=== PATIENT | female | born 1945 | race Caucasian/White ===

== ENCOUNTER 2017-03-26 10:15 | Inpatient (IN) ==
[2017-03-26] MEDS ORDERED: MAGNESIUM SULF RIDER 2 GM in PREMIX 1 EACH IV PRN (13:36)
[2017-03-26] MEDS ORDERED: DOCUSATE SODIUM 100 MG CAPSULE PO PRN (13:36)
[2017-03-26] MEDS ORDERED: MAGNESIUM SULF RIDER 4 GM in PREMIX 1 EACH IV PRN (13:36)
[2017-03-26] MEDS ORDERED: ZALEPLON 5 MG CAPSULE PO PRN (13:36)
--- NOTE | 2017-03-26 13:37 | Emergency Department Note ---
Arrival - Arrival Chief Complaint: Wound/Laceration Stated Complaint: incision busted open ED Nursing Triage Note: states had a heart monitor removed on 03/04/17 and the incision is open and will not heal. pt was told by dr fry to come to er and he would come see her Mode of Arrival: Ambulatory Time Seen by Provider: 03/26/17 13:35 - History of Present Illness HPI Narrative: The patient is sent back to nonemergent to see Dr. Fry. I will not be seeing this patient. Allergies/Adverse Reactions: Allergies Allergy/AdvReac Type Severity Reaction Status Date / Time Seafood Allergy Swelling Verified 03/11/17 17:30 of Lip/Tongue/Throat Home Medications: Home Medications Medication Instructions Recorded Confirmed Type Aspirin [Ecotrin] 81 mg PO DAILY 01/16/17 03/26/17 History Duloxetine HCl [Cymbalta] 60 mg PO DAILY 01/16/17 03/26/17 History LORazepam [Lorazepam] 0.5 mg PO DAILY 01/16/17 03/26/17 History Levothyroxine Tab [Synthroid Tab] 88 mcg PO DAILY 01/16/17 03/26/17 History Lisinopril/Hydrochlorothiazide 1 each PO DAILY #30 tablet 01/16/17 03/26/17 Rx [Lisinopril-Hctz 20-12.5 mg Tab] Pantoprazole Tab [Protonix Tab] 40 mg PO DAILY 01/16/17 03/26/17 History Medical,Surgical,& Family Hx - Medical History Cardio: History of: Hypertension Neurology: No history of: Seizures Gastrointestinal: History of: GERD Musculoskeletal: History of: Back/Neck Problems (back surgery) - Surgical History Cardiac Surgeries: Sugical HX of: Cardiac Catheterization () Orthopedic Surgeries: Surgical HX of;: Orthopedic Surgery (both knees) - Family History Family History: Reports;: Family Hypertension (parents), Family Stroke (father) - Social History Smoking Status: Never smoker Frequency of Alcohol Use: None Type of Drug Use: None Exam Vital Signs: Vital Signs Temperature 97.6 F 03/26/17 10:21 Pulse Rate 75 03/26/17 10:21 Respiratory Rate 18 03/26/17 10:21 Blood Pressure 153/79 03/26/17 10:21 O2 Sat by Pulse Oximetry 98 03/26/17 10:21 Course - Consultations Consultation #1: Dr. Fry at bedside Time: 13:35 Results - Labs CBC & BMP: 03/26/17 13:50
--- NOTE | 2017-03-26 13:49 | Cardiology History & Physical ---
Assessment and Plan (1) Skin infection Status: Acute Assessment and plan: 71-year-old female, status post a dual-chamber pacemaker implant for second- degree AV block, ILR explant. She developed ILR site infection 2 weeks after the procedure. She is not septic. The pacemaker implant site does not appear to be infected. -Admit to med/surg bed -ILR explant site infection. We will initiate IV antibiotic treatment, to protect her recently implanted pacemaker. -Stat CBC, BMP, wound and blood culture. -Start vancomycin 1 g IV twice daily, Zosyn 3.375 mg every 6 hours IV. We will deescalate treatment based on response and sensitivities -Wound care consult -Cont current regimen for HTN -If she shows any signs of systemic infection, we will need to proceed with endocarditis workup (2) 2Nd degree atrioventricular block Status: Acute (3) Chronotropic incompetence Status: Acute (4) HTN (hypertension) Status: Acute History of Present Illness Chief complaint: ILR explant site infection History of present illness: Ms. Tamayo is a 71 year old female with history of exertional second-degree AV block. She had a loop recorder in place. Due to progressive symptoms, she underwent dual-chamber pacemaker implantation and a loop recorder explantation 2 weeks ago. Her exertional bradycardia symptoms resolved and she was feeling much better. A week later, she presented for pacemaker and wound check, the pacemaker implant site and the ILR explant site was healing well. Dressings were removed. A day later, she noticed that the ILR explant site incision opened up. She noticed some drainage. She tried to clean it up, including a Q-tip but the drainage worsened and she developed some erythema surrounding the incision site. She came in for evaluation. She has pus draining from the ILR explant site and the incision is gaping, with some surrounding erythema. The pacemaker implant site is completely benign, there is no erythema, the wound healed well, there is no fluctuation, tenderness or pain. She denies any pain, fever chills or weakness. She has a small scratch on her left leg, without surrounding erythema. She denies recent injuries. Home Medications Medication Instructions Recorded Confirmed Type Aspirin [Ecotrin] 81 mg PO DAILY 01/16/17 03/26/17 History Duloxetine HCl [Cymbalta] 60 mg PO DAILY 01/16/17 03/26/17 History LORazepam [Lorazepam] 0.5 mg PO DAILY 01/16/17 03/26/17 History Levothyroxine Tab [Synthroid Tab] 88 mcg PO DAILY 01/16/17 03/26/17 History Lisinopril/Hydrochlorothiazide 1 each PO DAILY #30 tablet 01/16/17 03/26/17 Rx [Lisinopril-Hctz 20-12.5 mg Tab] Pantoprazole Tab [Protonix Tab] 40 mg PO DAILY 01/16/17 03/26/17 History Allergies Allergy/AdvReac Type Severity Reaction Status Date / Time Seafood Allergy Swelling Verified 03/11/17 17:30 of Lip/Tongue/Throat 12 point system: reviewed and no additional remarkable complaints except as stated Medical,Surgical,& Family Hx - Medical History Cardio: History of: Hypertension Neurology: No history of: Seizures Gastrointestinal: History of: GERD Musculoskeletal: History of: Back/Neck Problems (back surgery) - Surgical History Cardiac Surgeries: Sugical HX of: Cardiac Catheterization () Orthopedic Surgeries: Surgical HX of;: Orthopedic Surgery (both knees) - Family History Family History: Reports;: Family Hypertension (parents), Family Stroke (father) - Social History Smoking Status: Never smoker Frequency of Alcohol Use: None Type of Drug Use: None Cardiology Physical Exam - Constitutional Vitals: Vital Signs Temp Pulse Resp BP Pulse Ox 97.6 F 75 18 153/79 98 03/26/17 10:21 03/26/17 10:21 03/26/17 10:21 03/26/17 10:21 03/26/17 10:21 Intake and Output 03/25/17 03/26/17 03/26/17 23:59 07:59 15:59 Other: Weight 90.718 kg Patient Weight 03/26/17 23:59 Weight 90.718 kg General appearance: normal weight, no acute distress - Head Head exam: Present: normal inspection, normocephalic - Eye Eye exam: Absent: conjunctival injection Pupils: Absent: dilated - ENT ENT exam: Present: normal external ear exam - Neck Neck exam: Present: normal inspection - Respiratory Respiratory exam: Present: clear to auscultation bilaterally - Cardiovascular Cardiovascular exam: Present: regular rate and rhythm. Absent: systolic murmur - GI/Abdominal GI/Abdominal exam: Present: normal bowel sounds. Absent: distended - Extremities Exam Extremities exam: Present: normal inspection, normal capillary refill. Absent: edema - Back Exam Back exam: Present: normal inspection - Neurological Exam Neurological exam: Present: alert, oriented X3 - Psychiatric Psychiatric exam: Present: normal affect, normal mood - Skin Skin exam: Present: normal color, warm, other (ILR site abscess, as described in HPI) Result/EKG - Labs Lab Results: I have reviewed the past 24 hour labs - EKG EKG results: interpreted by me Quality Measures - VTE Contraindication to Pharmacological VTE Prophylaxis: Clinical assessment deems Pt at low risk, no prophalaxis needed
[2017-03-26 14:05] LABS: Basophils # 0.1 10*3/uL (0.0-0.2); Basophils % 0.6 % (0.0-0.8); Eosinophils # 0.6 10*3/uL (0.0-0.87); Eosinophils % 7.5 % (0.00-10.9); Hematocrit 32.2 VOL% (35.7-47.0); Immature Granulocytes % 0.3 %; Immature Granulocytes Absolute 0.02 #; Lymphocytes # 3.4 10*3/uL (1.4-4.0); Lymphocytes % 43.1 % (21.3-54.2); Mean Corpuscular HGB Conc 34.2 GM/DL (32-36); Mean Corpuscular Hemoglobin 29 PG (27-34); Mean Corpuscular Volume 85.6 FL (87-102); Mean Platelet Volume 8.5 FL (9.6-12.0); Monocytes # 0.4 10*3/uL (0.11-0.8); Neutrophils # 3.4 10*3/uL (1.4-7.4); Neutrophils % 43.5 % (38.7-73.9); Platelet Count 250 T/CUMM (130-400); Red Blood Count 3.76 MC/CUMM (3.8-5.5); Red Cell Distribution Width 12.9 % (9.3-17.3); White Blood Count 7.8 T/CUMM (4-12)
[2017-03-26 14:38] LABS: Calcium 8.9 MG/DL (8.5-10.1); Osmolality,Calculated 282.3 MOS/KG (273-304); Potassium 3.8 MMOL/L (3.5-5.1)
[2017-03-26] MEDS: PIPERACILLIN/TAZOBACTAM 3,375 MG in SODIUM CHLORIDE 0.9% 100 ML IV SCH (15:43)
[2017-03-26 16:55] LABS: Apearance,Urine CLEAR (Clear); Bilirubin,Urine Negative (Negative); Blood, Urine Small mg/dL (Negative); Glucose,Urine (UA) Negative (Negative); Ketones,Urine Negative (Negative); Nitrite,Urine Negative (Negative); Protein,Urine Negative; RBC,Urine 1 /HPF (0-4); Urine Color Straw (Yellow); Urine Specific Gravity 1.005 (1.001-1.035); Urine Urobilinogen < 2.0 EU/DL (0.2-1.0); WBC,Urine 1 /HPF (0-6)
[2017-03-26] MEDS ORDERED: VANCOMYCIN INJ 1,250 MG in SODIUM CHLORIDE 0.9% 250 ML IV SCH (20:00)
[2017-03-26] MEDS: LORazepam 0.5 MG TABLET PO SCH (20:20)
[2017-03-26] MEDS: DULoxetine 30 MG CAPSULE PO SCH (20:20)
[2017-03-26] MEDS ORDERED: DULoxetine 30 MG CAPSULE PO SCH (21:00)
[2017-03-26] MEDS ORDERED: LORazepam 0.5 MG TABLET PO SCH (21:00)
[2017-03-26] MEDS ORDERED: diphenhydrAMINE CAP 25 MG CAPSULE PO PRN (21:30)
[2017-03-26] MEDS ORDERED: diphenhydrAMINE CAP 50 MG CAPSULE PO PRN (21:31)
[2017-03-27] MEDS: PIPERACILLIN/TAZOBACTAM 3,375 MG in SODIUM CHLORIDE 0.9% 100 ML IV SCH ×3 (00:12→15:22)
[2017-03-27 06:24] LABS: Basophils # 0.1 10*3/uL (0.0-0.2); Basophils % 0.8 % (0.0-0.8); Eosinophils # 0.7 10*3/uL (0.0-0.87); Eosinophils % 8.9 % (0.00-10.9); Hematocrit 31.3 VOL% (35.7-47.0); Hemoglobin 10.5 GM/DL (12.0-16.0); Immature Granulocytes % 0.1 %; Immature Granulocytes Absolute 0.01 #; Lymphocytes # 3.3 10*3/uL (1.4-4.0); Lymphocytes % 44.9 % (21.3-54.2); Mean Corpuscular HGB Conc 33.5 GM/DL (32-36); Mean Corpuscular Hemoglobin 29 PG (27-34); Mean Corpuscular Volume 86.7 FL (87-102); Mean Platelet Volume 8.8 FL (9.6-12.0); Monocytes # 0.4 10*3/uL (0.11-0.8); Monocytes % 5.7 % (1.7-12.7); Neutrophils # 2.9 10*3/uL (1.4-7.4); Neutrophils % 39.6 % (38.7-73.9); Platelet Count 253 T/CUMM (130-400); Red Blood Count 3.61 MC/CUMM (3.8-5.5); Red Cell Distribution Width 12.9 % (9.3-17.3); White Blood Count 7.4 T/CUMM (4-12)
[2017-03-27 07:01] LABS: Calcium 8.3 MG/DL (8.5-10.1); Magnesium 2.1 MG/DL (1.8-2.4); Osmolality,Calculated 287.8 MOS/KG (273-304); Potassium 4.3 MMOL/L (3.5-5.1)
[2017-03-27] MEDS ORDERED: DULoxetine 30 MG CAPSULE PO SCH (09:00)
[2017-03-27] MEDS ORDERED: LORazepam 0.5 MG TABLET PO SCH (09:00)
[2017-03-27] MEDS: LISINOPRIL/HCTZ 20-12.5 MG TABLET PO SCH (09:39)
[2017-03-27] MEDS: LEVOTHYROXINE 88 MCG TABLET PO SCH (09:39)
[2017-03-27] MEDS: ASPIRIN EC 81 MG TABLET PO SCH (09:39)
[2017-03-27] MEDS: PANTOPRAZOLE 40 MG TABLET PO SCH (09:39)
--- NOTE | 2017-03-27 13:25 | Cardiology Progress Note ---
Clay Pelaez Vanessa, RN, am scribing for, and in the presence of, Malcolm Villalta MD 13 :25. Assessment and Plan - Time spent with patient Time spent with patient: Greater than 30 minutes (Due to assessment, planning, documentation, and medication review) (1) Skin infection Status: Acute Assessment and plan: 71-year-old female, status post a dual-chamber pacemaker implant for second- degree AV block, ILR explant. She developed ILR site infection 2 weeks after the procedure. She is not septic. The pacemaker implant site does not appear to be infected. -ILR explant site infection. Wound culture showing heavy gram-positive cocci. -Reaction to vancomycin suggestive of "red man" syndrome, instead of true anaphylaxis, resolved with antihistamine promptly. -We will continue IV Zosyn for now and I will start Septra twice daily, instead of vancomycin. Follow sensitivities. -Cleaned the wound and applied dressings. Wound care following -The pacemaker implant site does not seem to be infected. Continue to monitor closely. -If she shows any signs of systemic infection, we will need to proceed with endocarditis workup Current Visit: Yes (2) 2Nd degree atrioventricular block Status: Resolved Assessment and plan: SEE PLAN OF CARE LISTED ABOVE. Current Visit: No (3) Chronotropic incompetence Status: Chronic Assessment and plan: SEE PLAN OF CARE LISTED ABOVE. Current Visit: No (4) HTN (hypertension) Status: Chronic Assessment and plan: SEE PLAN OF CARE LISTED ABOVE. Current Visit: No (5) S/P cardiac pacemaker procedure Status: Chronic Assessment and plan: SEE PLAN OF CARE LISTED ABOVE. Current Visit: Yes Cardiology - PN: Subj Interval history: CARDIOLOGY NOTE: ILR EXPLANT SITE INFECTION SUMMARY: Ms. Tamayo is a 71 year old white female with PMHx of hypertension hyperlipidemia, type 2 diabetes, anxiety, hypothyroidism, second-degree AV block status post dual-chamber pacemaker implant. Dual-chamber pacemaker was implanted for symptomatic second-degree AV block March 11. At time of pacemaker implant, patient also had an internal loop recorder in place and this was explanted. Post pacemaker implant, patient with exertional bradycardia symptoms resolved and she felt much better. One week after discharge she followed up in clinic for pacemaker wound check. At time a check pacemaker implant site and ILR explant are healing well and dressings were removed. One day later, she noticed the ILR explant site incision had opened up and there was drainage. Patient attempted to clean drainage including use of Q-tip but it worsened and she developed erythema surrounding the incision site. Patient presented to the ER on March 26 for evaluation, it was noted that she had pus draining from the ILR explant site with gaping incision and surrounding erythema. Pacemaker implant site continues to heal well without erythema, tenderness, pain. No recent pain, fever, chills, weakness. Admission, patient had a small scratch noted on her left leg without surrounding erythema. She denied recent fall or injury. Patient was admitted per cardiology service to [facility] for IV antibiotics and treatment of ILR explant site infection. MARCH 27, 2017: Lab work stable this morning. Patient experienced some itching of scalp, skin, and IV site after IV Vanc infusion started yesterday evening. Infusion stopped , patient received 50 mg p.o. Benadryl with improvement of symptoms. Wound culture with gram-positive cocci. Blood culture pending. Afebrile. Slightly hypertensive this morning, 160/85, but overall fairly well controlled. Exam (Progress Note) - Constitutional Vitals: Period Temp Pulse Resp BP Sys/Mcfarlane Pulse Ox Last 24 Hr 98.1 F-99.1 F 64-75 16-20 124-184/49-98 93-97 Exam: General appearance: normal weight, no acute distress - Head Head exam: Present: normal inspection, normocephalic - Eye Eye exam: Absent: conjunctival injection Pupils: Absent: dilated - ENT ENT exam: Present: normal external ear exam - Neck Neck exam: Present: normal inspection - Respiratory Respiratory exam: Present: clear to auscultation bilaterally - Cardiovascular Cardiovascular exam: Present: regular rate and rhythm. Absent: systolic murmur - GI/Abdominal GI/Abdominal exam: Present: normal bowel sounds. Absent: distended - Extremities Exam Extremities exam: Present: normal inspection, normal capillary refill. Absent: edema - Back Exam Back exam: Present: normal inspection - Neurological Exam Neurological exam: Present: alert, oriented X3 - Psychiatric Psychiatric exam: Present: normal affect, normal mood - Skin Skin exam: Present: normal color, warm, other (ILR site abscess, as described in HPI) Result/EKG - Labs CBC & BMP: 03/27/17 04:35 03/27/17 04:35 Lab Results: I have reviewed the past 24 hour labs Labs: Laboratory Results - last 24 hr 03/26/17 03/26/17 03/26/17 13:50 13:50 13:50 WBC 7.8 RBC 3.76 L Hgb 11.0 L Hct 32.2 L MCV 85.6 L MCH 29 MCHC 34.2 RDW 12.9 Plt Count 250 MPV 8.5 L Neut % (Auto) 43.5 Lymph % (Auto) 43.1 [place] % (Auto) 5.0 Eos % (Auto) 7.5 Baso % (Auto) 0.6 Neut # (Auto) 3.4 Lymph # (Auto) 3.4 [place] # (Auto) 0.4 Eos # (Auto) 0.6 Baso # (Auto) 0.1 Immature Gran % 0.3 Nucleated RBC % 0.0 Immature Gran # 0.02 Nucleated RBCs # 0.00 Sodium 141 Potassium 3.8 Chloride 105 Carbon Dioxide 27 Anion Gap 12.8 BUN 17 Creatinine 1.00 GFR Calculation 66 BUN/Creatinine Ratio 17.00 Glucose 91 Calculated Osmolality 282.3 Calcium 8.9 Magnesium 2.0 Urine Color Straw Urine Appearance Clear Urine pH 5.0 Ur Specific [place] 1.005 Urine Protein Negative Urine Glucose (UA) Negative Urine Ketones Negative Urine Blood Small Urine Nitrate Negative Urine Bilirubin Negative Urine Urobilinogen < 2.0 H Urine Leukocytes Negative Urine RBC 1 Urine WBC 1 Ur Culture Indicated? Not indicated 03/27/17 03/27/17 04:35 04:35 WBC 7.4 RBC 3.61 L Hgb 10.5 L Hct 31.3 L MCV 86.7 L MCH 29 MCHC 33.5 RDW 12.9 Plt Count 253 MPV 8.8 L Neut % (Auto) 39.6 Lymph % (Auto) 44.9 [place] % (Auto) 5.7 Eos % (Auto) 8.9 Baso % (Auto) 0.8 Neut # (Auto) 2.9 Lymph # (Auto) 3.3 [place] # (Auto) 0.4 Eos # (Auto) 0.7 Baso # (Auto) 0.1 Immature Gran % 0.1 Nucleated RBC % 0.0 Immature Gran # 0.01 Nucleated RBCs # 0.00 Sodium 144 Potassium 4.3 Chloride 109 H Carbon Dioxide 29 Anion Gap 10.3 BUN 17 Creatinine 1.10 H GFR Calculation 60 BUN/Creatinine Ratio 15.00 Glucose 93 Calculated Osmolality 287.8 Calcium 8.3 L Magnesium 2.1 Urine Color Urine Appearance Urine pH Ur Specific [place] Urine Protein Urine Glucose (UA) Urine Ketones Urine Blood Urine Nitrate Urine Bilirubin Urine Urobilinogen Urine Leukocytes Urine RBC Urine WBC Ur Culture Indicated? - EKG EKG results: interpreted by me, no acute changes Quality Measures - VTE Contraindication to Pharmacological VTE Prophylaxis: Clinical assessment deems Pt at low risk, no prophalaxis needed Pawan Pelaez Attila, MD, personally performed the services described in this documentation, ascribed by Sierra Williamson RN in my presence, and it is both accurate and complete 325 .
[2017-03-27] MEDS: SULFAMETHOX/TRIMETHOPRIM 800-160 MG TABLET PO SCH ×2 (15:20→20:21)
[2017-03-27] MEDS: LORazepam 0.5 MG TABLET PO SCH (20:20)
[2017-03-27] MEDS: DULoxetine 30 MG CAPSULE PO SCH (20:21)
[2017-03-28] MEDS: PIPERACILLIN/TAZOBACTAM 3,375 MG in SODIUM CHLORIDE 0.9% 100 ML IV SCH ×4 (00:16→23:20)
[2017-03-28 06:47] LABS: Basophils # 0.1 10*3/uL (0.0-0.2); Basophils % 0.8 % (0.0-0.8); Eosinophils # 0.6 10*3/uL (0.0-0.87); Eosinophils % 7.6 % (0.00-10.9); Hematocrit 31.4 VOL% (35.7-47.0); Hemoglobin 10.6 GM/DL (12.0-16.0); Immature Granulocytes % 0.6 %; Immature Granulocytes Absolute 0.05 #; Lymphocytes # 3.4 10*3/uL (1.4-4.0); Lymphocytes % 42.7 % (21.3-54.2); Mean Corpuscular HGB Conc 33.8 GM/DL (32-36); Mean Corpuscular Hemoglobin 29 PG (27-34); Mean Corpuscular Volume 85.8 FL (87-102); Mean Platelet Volume 8.8 FL (9.6-12.0); Monocytes # 0.5 10*3/uL (0.11-0.8); Monocytes % 6.1 % (1.7-12.7); Neutrophils # 3.3 10*3/uL (1.4-7.4); Neutrophils % 42.2 % (38.7-73.9); Platelet Count 289 T/CUMM (130-400); Red Blood Count 3.66 MC/CUMM (3.8-5.5); Red Cell Distribution Width 12.7 % (9.3-17.3); White Blood Count 7.9 T/CUMM (4-12)
[2017-03-28] MEDS: ASPIRIN EC 81 MG TABLET PO SCH (09:08)
[2017-03-28] MEDS: PANTOPRAZOLE 40 MG TABLET PO SCH (09:08)
[2017-03-28] MEDS: SULFAMETHOX/TRIMETHOPRIM 800-160 MG TABLET PO SCH (09:08)
[2017-03-28] MEDS: LISINOPRIL/HCTZ 20-12.5 MG TABLET PO SCH (09:08)
[2017-03-28] MEDS: LEVOTHYROXINE 88 MCG TABLET PO SCH (09:08)
--- NOTE | 2017-03-28 12:18 | Cardiology Progress Note ---
Assessment and Plan (1) Skin infection Status: Acute Assessment and plan: 71-year-old female, status post a dual-chamber pacemaker implant for second- degree AV block, ILR explant. She developed ILR site infection 2 weeks after the procedure. She is not septic. The pacemaker implant site does not appear to be infected. -ILR explant site infection. Wound culture showing heavy gram-positive cocci. MRSA screen positive. -Reaction to vancomycin suggestive of "red man" syndrome, instead of true anaphylaxis, resolved with antihistamine promptly. Was stopped. -She is on Zosyn and Septra now. -I will obtain ID consult. High risk of pacemaker pocket infection. So far, does not seem to be affected. -If she shows any signs of systemic infection, we will need to proceed with endocarditis workup -Cont wound care Current Visit: Yes (2) 2Nd degree atrioventricular block Status: Resolved Assessment and plan: SEE PLAN OF CARE LISTED ABOVE. Current Visit: No (3) Chronotropic incompetence Status: Chronic Assessment and plan: SEE PLAN OF CARE LISTED ABOVE. Current Visit: No (4) HTN (hypertension) Status: Chronic Assessment and plan: SEE PLAN OF CARE LISTED ABOVE. Current Visit: No (5) S/P cardiac pacemaker procedure Status: Chronic Assessment and plan: SEE PLAN OF CARE LISTED ABOVE. Current Visit: Yes Cardiology - PN: Subj Interval history: She is feeling fine. The ILR explant lax appears the same as yesterday. The wound was packed and clean yesterday. She tested positive for MRSA. Wound culture is growing gram-positive cocci. Exam (Progress Note) - Constitutional Vitals: Period Temp Pulse Resp BP Sys/Mcfarlane Pulse Ox Last 24 Hr 97.0 F-98.4 F 65-70 12-18 132-154/67-87 93-97 General appearance: normal weight, no acute distress - Head Head exam: Present: normal inspection - Eye Eye exam: Absent: conjunctival injection Pupils: Absent: dilated - ENT ENT exam: Present: normal external ear exam - Neck Neck exam: Present: normal inspection - Respiratory Respiratory exam: Present: clear to auscultation bilaterally - Cardiovascular Cardiovascular exam: Present: regular rate and rhythm - GI/Abdominal GI/Abdominal exam: Present: normal bowel sounds - Extremities Exam Extremities exam: Present: normal inspection, normal capillary refill - Neurological Exam Neurological exam: Present: alert, oriented X3 - Psychiatric Psychiatric exam: Present: normal affect, normal mood - Skin Skin exam: Present: normal color, warm. Absent: cyanosis Result/EKG - Labs CBC & BMP: 03/28/17 04:00 03/27/17 04:35 Lab Results: I have reviewed the past 24 hour labs Labs: Laboratory Results - last 24 hr 03/28/17 04:00 WBC 7.9 RBC 3.66 L Hgb 10.6 L Hct 31.4 L MCV 85.8 L MCH 29 MCHC 33.8 RDW 12.7 Plt Count 289 MPV 8.8 L Neut % (Auto) 42.2 Lymph % (Auto) 42.7 [place] % (Auto) 6.1 Eos % (Auto) 7.6 Baso % (Auto) 0.8 Neut # (Auto) 3.3 Lymph # (Auto) 3.4 [place] # (Auto) 0.5 Eos # (Auto) 0.6 Baso # (Auto) 0.1 Immature Gran % 0.6 Nucleated RBC % 0.0 Immature Gran # 0.05 Nucleated RBCs # 0.00 - EKG EKG results: interpreted by me Quality Measures - VTE Contraindication to Pharmacological VTE Prophylaxis: Clinical assessment deems Pt at low risk, no prophalaxis needed
[2017-03-28] MEDS: MUPIROCIN 2% OINT 22 GM TUBE TOP SCH ×2 (14:12→20:21)
[2017-03-28] MEDS ORDERED: BISACODYL 5 MG TABLET PO PRN (17:20)
[2017-03-28] MEDS ORDERED: diphenhydrAMINE 50 MG/1 ML VIAL IV PRN (18:28)
--- NOTE | 2017-03-28 18:44 | Infectious Disease Consult ---
Assessment and Plan (1) Skin infection Status: Acute Assessment and plan: Infection to skin and soft tissues at ILR explant site. GPC is going and culture and suspect MRSA. Recommendations: 1. Prefer the patient to be on vancomycin. It seems her so-called reaction was probably red man syndrome. We will have the vancomycin infused slowly and premedicate with Benadryl. 2. Continue empiric Zosyn for now 3. Follow-up cultures and make adjustments antibiotics accordingly. Thank you very much for the consult. Will follow. Current Visit: Yes (2) S/P cardiac pacemaker procedure Status: Chronic Assessment and plan: No infection of the pacemaker site apparent. Current Visit: Yes History of Present Illness Chief complaint: ILR explant site infection History of present illness: Ms. Tamayo is a 71 year old female Who had a heart rate monitoring device implanted a year ago. It was decided she needed a pacemaker and so this was done on 11 March and at the same time the heart rate monitor, and ILR device, was removed. The patient was okay post procedures however by the second week she said the wound at the ILR explant site started draining and subsequently opened. She was admitted for aggressive antibiotic therapy to spread infections to prevent infection spreading to the pacemaker site. She has not had fever or any other constitutional symptoms. She was started on vancomycin and Zosyn when she was admitted 2 nights ago however she developed itching to the head and face and upper chest from the vancomycin so it was stopped and she was put on Bactrim and replacement. I am asked to assist with antibiotic management. Home Medications Medication Instructions Recorded Confirmed Type Aspirin [Ecotrin] 81 mg PO DAILY 01/16/17 03/26/17 History Duloxetine HCl [Cymbalta] 60 mg PO DAILY 01/16/17 03/26/17 History LORazepam [Lorazepam] 0.5 mg PO DAILY 01/16/17 03/26/17 History Levothyroxine Tab [Synthroid Tab] 88 mcg PO DAILY 01/16/17 03/26/17 History Lisinopril/Hydrochlorothiazide 1 each PO DAILY #30 tablet 01/16/17 03/26/17 Rx [Lisinopril-Hctz 20-12.5 mg Tab] Pantoprazole Tab [Protonix Tab] 40 mg PO DAILY 01/16/17 03/26/17 History Allergies Allergy/AdvReac Type Severity Reaction Status Date / Time vancomycin Allergy Intermediate ITCHING Verified 03/27/17 15:21 Seafood Allergy Swelling Verified 03/11/17 17:30 of Lip/Tongue/Throat 12 point system: reviewed and no additional remarkable complaints except as stated (Per HPI) Medical,Surgical,& Family Hx - Medical History Cardio: History of: Hypertension Psychological: No history of: Anxiety Disorders, ADHD, Behavior Problems, Bipolar Disorder, Depression, Previous Suicide Attempt, Psychiatric/Substance Abuse Tx Neurology: No history of: Seizures Gastrointestinal: History of: GERD Musculoskeletal: History of: Back/Neck Problems (back surgery) - Surgical History Cardiac Surgeries: Sugical HX of: Cardiac Catheterization () Thoracic Surgeries: Patient denies;: Organ Transplant Orthopedic Surgeries: Surgical HX of;: Orthopedic Surgery (both knees) - Family History Family History: Reports;: Family Hypertension (parents), Family Stroke (father) - Social History Smoking Status: Never smoker Frequency of Alcohol Use: None Type of Drug Use: None Infectious Disease Exam H&P - Constitutional Vitals: Vital Signs Temp Pulse Resp BP Pulse Ox 98.5 F 69 18 141/79 95 03/28/17 15:55 03/28/17 15:55 03/28/17 15:55 03/28/17 15:55 03/28/17 15:55 Intake and Output 03/28/17 03/28/17 03/28/17 07:59 15:59 23:59 Intake Total 340 / 340 700 / 700 Balance 340 / 340 700 / 700 Intake: IV 100 / 100 100 / 100 Zosyn 3,375 mg In Ns 100 100 / 100 100 / 100 ml @ 25 mls/hr IV Q8H [facility] Rx#:[id number] Oral 240 / 240 600 / 600 Other: Voiding Method Brief Toilet # Voids 3 8 # Bowel Movements 0 Weight 75.07 kg Patient Weight 03/28/17 23:59 Weight 75.07 kg Exam: General: Patient comfortable HEENT: Mucous membranes pink and moist, anicteric acyanotic, TAMI, no oropharyngeal exudates Neck: Supple, no thyroid gland enlargement Respiratory system: Breath sounds vesicular, no crepitations or wheezes Cardiovascular: Pacemaker site noted healed there is no redness or induration or open wounds in that area. There is an open wound to the ILR explant site is about 1.5 cm wide and there is scant drainage of cloudy fluid but there is no surrounding erythema or induration. She has normal S1 and S2, no murmurs appreciated Abdomen: Normal bowel sounds, soft nontender throughout, no organomegaly or mass Genitourinary: No suprapubic pain or bladder distention Extremities: no edema Skin: No rash Reports - Labs CBC & BMP: 03/28/17 04:00 03/27/17 04:35 Labs: Laboratory Results - last 24 hr 03/28/17 04:00 WBC 7.9 RBC 3.66 L Hgb 10.6 L Hct 31.4 L MCV 85.8 L MCH 29 MCHC 33.8 RDW 12.7 Plt Count 289 MPV 8.8 L Neut % (Auto) 42.2 Lymph % (Auto) 42.7 [place] % (Auto) 6.1 Eos % (Auto) 7.6 Baso % (Auto) 0.8 Neut # (Auto) 3.3 Lymph # (Auto) 3.4 [place] # (Auto) 0.5 Eos # (Auto) 0.6 Baso # (Auto) 0.1 Immature Gran % 0.6 Nucleated RBC % 0.0 Immature Gran # 0.05 Nucleated RBCs # 0.00 - Reports Microbiology: Microbiology 03/26/17 13:50 Urine Culture - Preliminary Urine,Voided No Growth at 24 hours. 03/26/17 17:00 MRSA Culture - Final Nares MRSA ISOLATED Please place patient in contact isolation per Infection Control. 03/26/17 13:50 Blood Culture - Preliminary Blood No growth at 1 day 03/26/17 13:50 Blood Culture - Preliminary Blood No growth at 1 day
[2017-03-28] MEDS: DULoxetine 30 MG CAPSULE PO SCH (20:21)
[2017-03-28] MEDS: LORazepam 0.5 MG TABLET PO SCH (20:21)
[2017-03-28] MEDS: diphenhydrAMINE 50 MG/1 ML VIAL IV SCH (20:25)
[2017-03-28] MEDS ORDERED: VANCOMYCIN INJ 1,000 MG in SODIUM CHLORIDE 0.9% 250 ML IV SCH (21:00)
[2017-03-29 03:51] LABS: Basophils # 0.1 10*3/uL (0.0-0.2); Basophils % 0.6 % (0.0-0.8); Eosinophils # 0.6 10*3/uL (0.0-0.87); Hematocrit 31.9 VOL% (35.7-47.0); Hemoglobin 10.7 GM/DL (12.0-16.0); Immature Granulocytes % 0.2 %; Immature Granulocytes Absolute 0.02 #; Lymphocytes # 2.9 10*3/uL (1.4-4.0); Lymphocytes % 35.4 % (21.3-54.2); Mean Corpuscular HGB Conc 33.5 GM/DL (32-36); Mean Corpuscular Hemoglobin 29 PG (27-34); Mean Platelet Volume 8.6 FL (9.6-12.0); Monocytes # 0.5 10*3/uL (0.11-0.8); Monocytes % 5.9 % (1.7-12.7); Neutrophils # 4.1 10*3/uL (1.4-7.4); Neutrophils % 50.9 % (38.7-73.9); Platelet Count 242 T/CUMM (130-400); Red Blood Count 3.71 MC/CUMM (3.8-5.5); White Blood Count 8.1 T/CUMM (4-12)
[2017-03-29] MEDS: diphenhydrAMINE 50 MG/1 ML VIAL IV SCH (08:35)
[2017-03-29] MEDS: PIPERACILLIN/TAZOBACTAM 3,375 MG in SODIUM CHLORIDE 0.9% 100 ML IV SCH (08:52)
[2017-03-29] MEDS: ASPIRIN EC 81 MG TABLET PO SCH (08:54)
[2017-03-29] MEDS: LEVOTHYROXINE 88 MCG TABLET PO SCH (08:54)
[2017-03-29] MEDS: LISINOPRIL/HCTZ 20-12.5 MG TABLET PO SCH (08:54)
[2017-03-29] MEDS: PANTOPRAZOLE 40 MG TABLET PO SCH (08:54)
[2017-03-29] MEDS: MUPIROCIN 2% OINT 22 GM TUBE TOP SCH (09:01)
--- NOTE | 2017-03-29 10:26 | Cardiology Progress Note ---
Clay Pelaez Vanessa RN, am scribing for, and in the presence of, Malcolm Villalta MD 10 :25. Assessment and Plan - Time spent with patient Time spent with patient: Greater than 30 minutes (1) Skin infection Status: Acute Assessment and plan: 71-year-old female, status post a dual-chamber pacemaker implant for second- degree AV block, ILR explant. She developed ILR site infection 2 weeks after the procedure. She is not septic. The pacemaker implant site does not appear to be infected. -ILR explant site infection. Wound culture showing heavy gram-positive cocci. MRSA screen positive. -Appreciate ID input. The patient would prefer to go home. This may be possible of outpatient IV antibiotics, or p.o. options are available. Will d/w dr. Wagner -If she shows any signs of systemic infection, we will need to proceed with endocarditis workup -Cont wound care Current Visit: Yes (2) 2Nd degree atrioventricular block Status: Resolved Assessment and plan: SEE PLAN OF CARE LISTED ABOVE. Current Visit: No (3) Chronotropic incompetence Status: Chronic Assessment and plan: SEE PLAN OF CARE LISTED ABOVE. Current Visit: No (4) HTN (hypertension) Status: Chronic Assessment and plan: SEE PLAN OF CARE LISTED ABOVE. Current Visit: No (5) S/P cardiac pacemaker procedure Status: Chronic Assessment and plan: SEE PLAN OF CARE LISTED ABOVE. Current Visit: Yes Cardiology - PN: Subj Interval history: Patient continues to feel well. ILR explant site appears to continue to heal. Nares tested positive for MRSA. Wound culture with gram-positive cocci. Dr. Wagner with infectious diseases evaluated patient yesterday evening, and wound care was performed. Afebrile, vital signs stable. Exam (Progress Note) - Constitutional Vitals: Period Temp Pulse Resp BP Sys/Mcfarlane Pulse Ox Last 24 Hr 98.1 F-98.6 F 62-71 14-20 124-141/62-81 93-100 Exam: General appearance: normal weight, no acute distress - Head Head exam: Present: normal inspection - Eye Eye exam: Absent: conjunctival injection Pupils: Absent: dilated - ENT ENT exam: Present: normal external ear exam - Neck Neck exam: Present: normal inspection - Respiratory Respiratory exam: Present: clear to auscultation bilaterally - Cardiovascular Cardiovascular exam: Present: regular rate and rhythm - GI/Abdominal GI/Abdominal exam: Present: normal bowel sounds - Extremities Exam Extremities exam: Present: normal inspection, normal capillary refill - Neurological Exam Neurological exam: Present: alert, oriented X3 - Psychiatric Psychiatric exam: Present: normal affect, normal mood - Skin Skin exam: Present: normal color, warm. Absent: cyanosis Occlusive dressing, over ILR explant site. No erythema around the pacemaker implant site. Result/EKG - Labs CBC & BMP: 03/29/17 02:42 03/27/17 04:35 Lab Results: I have reviewed the past 24 hour labs Labs: Laboratory Results - last 24 hr 03/29/17 02:42 WBC 8.1 RBC 3.71 L Hgb 10.7 L Hct 31.9 L MCV 86.0 L MCH 29 MCHC 33.5 RDW 13.0 Plt Count 242 MPV 8.6 L Neut % (Auto) 50.9 Lymph % (Auto) 35.4 [place] % (Auto) 5.9 Eos % (Auto) 7.0 Baso % (Auto) 0.6 Neut # (Auto) 4.1 Lymph # (Auto) 2.9 [place] # (Auto) 0.5 Eos # (Auto) 0.6 Baso # (Auto) 0.1 Immature Gran % 0.2 Nucleated RBC % 0.0 Immature Gran # 0.02 Nucleated RBCs # 0.00 - EKG EKG results: interpreted by me, no acute changes Quality Measures - VTE Contraindication to Pharmacological VTE Prophylaxis: Clinical assessment deems Pt at low risk, no prophalaxis needed IPawan Attila, MD, personally performed the services described in this documentation, ascribed by Sierra Williamson RN in my presence, and it is both accurate and complete .
--- NOTE | 2017-03-29 10:58 | Infectious Disease Progress ---
Assessment and Plan (1) Skin infection Status: Acute Assessment and plan: Infection to skin and soft tissues at ILR explant site. GPC is going and culture and suspect MRSA. Recommendations: 1. The patient can go home today on oral Bactrim 1 double strength twice a day for 7-10 days. I can see in the office in a week to see that she is responding well 2. Stop vancomycin and Zosyn 3. Patient had no allergic reaction to vancomycin so we can remove this from her allergy list Case discussed with Dr. Villalta Current Visit: Yes (2) S/P cardiac pacemaker procedure Status: Chronic Assessment and plan: No infection of the pacemaker site apparent. Current Visit: Yes Infectious Disease - PN: Subj Interval history: Patient doing okay she is anxious to go home. No significant pain to the area of the ILR explant site to the left chest. She has not been febrile. She did not have a reaction to vancomycin last night. Infectious Disease Exam (PN) - Constitutional Vitals: Temp Pulse Resp BP Pulse Ox 98.1 F 62 16 141/63 100 03/29/17 04:19 03/29/17 04:19 03/29/17 04:19 03/29/17 04:19 03/29/17 04:19 General appearance: normal weight, no acute distress Exam: General appearance: no acute distress - Eye Eye exam: Present: EOMI. no icterus Pupils: Present: TAMI - ENT ENT exam: no oropharyhgeal exudates - Respiratory Respiratory exam: vesicular BS, no crepitations or wheezes - Cardiovascular Cardiovascular exam: Wound to left chest noted no purulence, scant drainage, no surrounding erythema or induration, of course pacemaker site still looks great, regular rate and rhythm, no murmurs - GI/Abdominal GI/Abdominal exam: normal bowel sounds, soft, non-tender, no organomegaly or mass - Extremities Exam Extremities exam: no edema - Skin Skin exam: no rash Results - Labs CBC & BMP: 03/29/17 02:42 03/27/17 04:35 Lab Results: I have reviewed the past 24 hour labs (Gram-positive cocci growing from left chest wound noted and identified) Quality Measures - VTE Contraindication to Pharmacological VTE Prophylaxis: Clinical assessment deems Pt at low risk, no prophalaxis needed
[2017-03-29] MEDS ORDERED: SULFAMETHOX/TRIMETHOPRIM 800-160 MG TABLET PO ONE (12:18)
[2017-03-29 12:30] VITALS: BP 136/66
--- NOTE | 2017-03-29 12:39 | Discharge Summary ---
Hospital Course - Hospital Course Hospital Course: Ms. Tamayo is a 69-year-old female patient, with history of symptomatic second -degree AV block. She had a loop recorder in place. She underwent dual- chamber pacemaker implantation and loop recorder explantation. 1 week post procedure of wound check showed good wound healing. A week later, she noticed dehiscense of her ILR explant site and drainage, with surrounding erythema. She was admitted for antibiotic treatment. Antibiotic treatment was started with IV Zosyn and vancomycin. She developed red man syndrome from vancomycin and was switched to Septra. ID consult was obtained. Cultures grew MRSA, which was sensitive to Septra. On the day of discharge, I reddressed the ILR explant site wound, repacked and applied silver dressing. The erythema improved, there is no more drainage. The pacemaker implant site healed well, there is no erythema, fluctuation or pain around the pacemaker implant site. She had no fever and no WBC elevation. -We will continue Septra DS 1 tablet twice daily for 10 days. -She will follow-up with Dr. Wagner, in 1 week. -Wound care was discussed. She is to keep the occlusive dressing in place. If she develops pain tenderness fever chills drainage or any other concerning symptoms, she will need to call our office. -Continue Mupirocine nasal ointment -She will follow-up with Dr. Villalta in 1 month. Diagnosis - Discharge Diagnosis (1) Skin infection Status: Acute (2) 2Nd degree atrioventricular block Status: Resolved (3) Chronotropic incompetence Status: Chronic (4) HTN (hypertension) Status: Chronic (5) S/P cardiac pacemaker procedure Status: Chronic Specialty Discharge - Follow Up or Referrals Follow up with: Malcolm Villalta MD [Physician] - (office closed please make your appt. on ) Discharge Plan - Discharge Data Disposition: Disch To Home/Self Care Condition at Discharge: Stable Discharge Diet: advance to your usual diet Activity: resume usual activities as tolerated Hygiene: keep area(s) dry (until seen by dr. Wagner) Weight Bearing at Discharge: full weight bearing Driving: no restrictions Contact your physician if you experience:: fever over 101, Difficulty voiding, Redness or swelling, Nausea/Vomiting, Shortness of breath, Bleeding, pain uncontrolled by pain medications - Discharge Medications New Sulfameth/Trimeth 800-160 Tab [Bactrim DS Tab] 1 tablet PO BID #20 tablet Mupirocin 2% Oint [Bactroban 2% Oint] 1 applic TOP TID #6 applic Continue LORazepam [Lorazepam] 0.5 mg PO DAILY Levothyroxine Tab [Synthroid Tab] 88 mcg PO DAILY Duloxetine HCl [Cymbalta] 60 mg PO DAILY Aspirin [Ecotrin] 81 mg PO DAILY Pantoprazole Tab [Protonix Tab] 40 mg PO DAILY Lisinopril/Hydrochlorothiazide [Lisinopril-Hctz 20-12.5 mg Tab] 1 each PO DAILY #30 tablet - Follow Up or Referral Follow Up: Nehal Maki MD [Physician] - (office closed please make appt on 04/01) Malcolm Villalta MD [Physician] - 1 Week (Follow up with ID, dr. Wagner in 1 week Follow up with dr. Villalta in 1 month) - Forms/Instructions Exam - Constitutional Vitals: Period Temp Pulse Resp BP Sys/Mcfarlane Pulse Ox Last 24 Hr 98.0 F-98.5 F 62-72 14-20 124-154/62-79 93-100 General appearance: normal weight, no acute distress - Head Head exam: Present: normal inspection, normocephalic - Eye Eye exam: Absent: conjunctival injection Pupils: Absent: dilated - ENT ENT exam: Present: normal external ear exam - Neck Neck exam: Present: normal inspection - Respiratory Respiratory exam: Present: clear to auscultation bilaterally - Cardiovascular Cardiovascular exam: Present: regular rate and rhythm - GI/Abdominal GI/Abdominal exam: Present: normal bowel sounds - Extremities Exam Extremities exam: Present: normal inspection, normal capillary refill. Absent: edema - Back Exam Back exam: Present: normal inspection - Neurological Exam Neurological exam: Present: alert, oriented X3 - Psychiatric Psychiatric exam: Present: normal affect, normal mood - Skin Skin exam: Present: normal color, warm, other (ILR explant site ulcer, as above) . Absent: cyanosis Discharge Results Procedures and tests throughout hospitalization: Pending Orders 03/26/17 13:50 Blood Culture Stat Labs on day of discharge: Labs from last 24 hours 03/29/17 02:42 WBC 8.1 RBC 3.71 L Hgb 10.7 L Hct 31.9 L MCV 86.0 L MCH 29 MCHC 33.5 RDW 13.0 Plt Count 242 MPV 8.6 L Neut % (Auto) 50.9 Lymph % (Auto) 35.4 [place] % (Auto) 5.9 Eos % (Auto) 7.0 Baso % (Auto) 0.6 Neut # (Auto) 4.1 Lymph # (Auto) 2.9 [place] # (Auto) 0.5 Eos # (Auto) 0.6 Baso # (Auto) 0.1 Immature Gran % 0.2 Nucleated RBC % 0.0 Immature Gran # 0.02 Nucleated RBCs # 0.00 Preliminary micro results at discharge 03/26/17 13:50 Blood Culture - Preliminary Blood No growth at 1 day 03/26/17 13:50 Blood Culture - Preliminary Blood No growth at 1 day - Imaging and Cardiology Cardiology Procedure: image reviewed by me, report reviewed by me DS: Provider Date of admission: 03/26/17 13:36 Primary care physician: Beltran Ulloa I Attending physician on admission: Maclolm Villalta MD Consults: 03/26/17 13:39 Consult to Wound Care - [place] [CONS] Routine Reason for Wound Care: Wound Care Management Consult Comment: ILR explant site infection 03/26/17 13:43 Consult to Pharmacy [CONS] Routine Reason for Pharmacy Consult: Dose/Manage Vancomycin 03/28/17 09:04 Consult to Physician [CONS] Routine Comment: Consulting Provider: Nehal Maki Consult to Specialist Group: Infectious Disease When should Consulting Provider be notified: Now Person Notified: Mary Date Notified: 03/28/17 Time Notified: 10:13 Consult Notification Comment: LEFT MESSAGE ON call again @12:51 got , Spoke with Mary at Dr Jones office gave her the consult. at 1315 03/28/17 13:14 Consult to Physician [CONS] Routine Comment: Consulting Provider: 03/28/17 18:27 Consult to Pharmacy [CONS] Routine Reason for Pharmacy Consult: Dose/Manage Vancomycin Comment: Vancomycin to be infused slowly to avoid red man syndrome Discharging clinician: Malcolm Villalta MD Expected date of discharge: 03/29/17
[2017-03-29] MEDS ORDERED: SULFAMETHOX/TRIMETHOPRIM 800-160 MG TABLET PO SCH (21:00)
== END 2017-03-29 15:15 | disposition home or self-care (01) | DRG 863 ==
LOC: N.ED 10:15 → N.EDINP 13:36 → N.5E 15:16
PROVIDERS: ADMIT Internal Medicine Clinical Cardiac Electrophysiology; ATTEND Internal Medicine Clinical Cardiac Electrophysiology

== ENCOUNTER 2017-04-07 15:20 | Inpatient (IN) ==
--- NOTE | 2017-04-07 16:13 | EKG Report ---
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
--- NOTE | 2017-04-07 17:16 | XRay Report ---
Exam: XR chest 1V portable Indication: Shortness of breath Comparison study: 03/12/2017 Findings: Left chest pacemaker device or leads appear in similar position. The heart, mediastinum and bony structures are stable from prior. Punctate calcific density right upper lobe is unchanged likely representing a granulomatous lesion. There is no focal consolidation, pneumothorax or pleural effusion identified. Impression: No acute cardiopulmonary process. No significant change from prior. PROCEDURE INTERPRETED AT [facility] DEPARTMENT OF RADIOLOGY Final Report Signed by: Wilton Méndez
[2017-04-07 17:30] LABS: Basophils # 0.1 10*3/uL (0.0-0.2); Basophils % 0.5 % (0.0-0.8); Eosinophils # 0.5 10*3/uL (0.0-0.87); Hematocrit 36.6 VOL% (35.7-47.0); Hemoglobin 12.2 GM/DL (12.0-16.0); Immature Granulocytes % 0.4 %; Immature Granulocytes Absolute 0.04 #; Lymphocytes # 3.4 10*3/uL (1.4-4.0); Lymphocytes % 32.9 % (21.3-54.2); Mean Corpuscular HGB Conc 33.3 GM/DL (32-36); Mean Corpuscular Hemoglobin 29 PG (27-34); Mean Corpuscular Volume 87.4 FL (87-102); Mean Platelet Volume 8.5 FL (9.6-12.0); Monocytes # 0.5 10*3/uL (0.11-0.8); Monocytes % 4.8 % (1.7-12.7); Neutrophils # 5.9 10*3/uL (1.4-7.4); Neutrophils % 56.4 % (38.7-73.9); Platelet Count 291 T/CUMM (130-400); Red Blood Count 4.19 MC/CUMM (3.8-5.5); Red Cell Distribution Width 13.1 % (9.3-17.3); White Blood Count 10.4 T/CUMM (4-12)
[2017-04-07 17:45] LABS: Alanine Aminotransferase 24 U/L (13-56); Albumin 3.7 G/DL (3.4-5.0); Alkaline Phosphatase 71 U/L (45-117); Aspartate Amino Transferase 18 U/L (0-37); Bilirubin,Total < 0.39 MG/DL (0.2-1.0); Blood Urea Nitrogen 38 MG/DL (7-18); Calcium 9.4 MG/DL (8.5-10.1); Glucose 91 MG/DL (74-106); Osmolality,Calculated 283.7 MOS/KG (273-304); Potassium 4.9 MMOL/L (3.5-5.1); Sodium 138 MMOL/L (136-145); Total Protein 7.1 G/DL (6.4-8.3); Troponin I Only < 0.015 NG/ML (0.00-0.045)
--- NOTE | 2017-04-07 18:01 | Emergency Department Note ---
Pb Pelaez Hilary, am scribing for, and in the presence of, Ricci Beyer Jr., MD 16:14. IPepito Marvin Jr., MD, personally performed the services described in this documentation, ascribed by Julieta Ambriz in my presence, and it is both accurate and complete [id number] . Arrival - Arrival Chief Complaint: Syncope Stated Complaint: fainting spells,dizzy,back pain,seeing black ED Nursing Triage Note: C/O HAVING NEAR SYCNOPE EPISODE EARLIER TODAY., STATES SINCE THAT TIME SHE HAS BEEN H AVING ABD.PAIN AND HURTING THROUGH BACK, PAIN WORSE UNDERNEATH THE RIGHT UPPER ABDOMEN ., STATES SHE RECENTLY BEEN TREATED FOR STAPH INFECTION., + SOB., DENIES HAVING CHEST PAIN , + DIAPHRESIS., + NAUSEA Mode of Arrival: Wheelchair Limitations: No Limitations Source: Patient, RN Notes Reviewed Time Seen by Provider: 04/07/17 16:10 - History of Present Illness HPI Narrative: Pt is a 71 y/o white female presenting to the ED with c/o dizziness and the feeling of about to pass out upon standing which onset today. Pt confirms severe nausea that is getting worse as the day goes on, SOB that worsens with exercise, pain in her back and severe abdominal pain but denies vomiting, diarrhea or chest pain. She reports having a pacemaker put in on March 11, 2017 and there was a staph infection where they took the monitor out so she has been on Bactrim for 10 days. Pt has high blood pressure and takes her medication as prescribed. No other complaints or problems stated in the ED. Onset (ago): hour(s) Consistency: constant Severity: severe Allergies/Adverse Reactions: Allergies Allergy/AdvReac Type Severity Reaction Status Date / Time vancomycin Allergy Intermediate ITCHING Verified 04/07/17 15:37 Seafood Allergy Swelling Verified 04/07/17 15:37 of Lip/Tongue/Throat Home Medications: Home Medications Medication Instructions Recorded Confirmed Type Aspirin [Ecotrin] 81 mg PO QPM 01/16/17 04/07/17 History Duloxetine HCl [Cymbalta] 60 mg PO QPM 01/16/17 04/07/17 History LORazepam [Lorazepam] 0.5 mg PO QPM 01/16/17 04/07/17 History Levothyroxine Tab [Synthroid Tab] 88 mcg PO QAM 01/16/17 04/07/17 History Pantoprazole Tab [Protonix Tab] 40 mg PO QAM 01/16/17 04/07/17 History Mupirocin 2% Oint [Bactroban 2% 1 applic TOP TID #6 applic 03/29/17 04/07/17 Rx Oint] Sulfameth/Trimeth 800-160 Tab 1 tablet PO BID #20 tablet 03/29/17 04/07/17 Rx [Bactrim DS Tab] Lisinopril/Hydrochlorothiazide 1 each PO QAM 04/07/17 04/07/17 History [Lisinopril-Hctz 20-12.5 mg Tab] Review of System - Review of System 12 point system: reviewed and no additional remarkable complaints except as stated - Review of System Respiratory: Present: respiratory distress (SOB) Cardiovascular: Present: syncope (near syncope). Absent: chest pain Gastrointestinal: Present: abdominal pain, nausea. Absent: vomiting, diarrhea Musculoskeletal: Present: back pain Medical,Surgical,& Family Hx - Medical History Cardio: History of: Hypertension Psychological: No history of: Anxiety Disorders, ADHD, Behavior Problems, Bipolar Disorder, Depression, Previous Suicide Attempt, Psychiatric/Substance Abuse Tx Neurology: No history of: Seizures Gastrointestinal: History of: GERD Musculoskeletal: History of: Back/Neck Problems (back surgery) - Surgical History Cardiac Surgeries: Sugical HX of: Cardiac Catheterization () Thoracic Surgeries: Patient denies;: Organ Transplant Orthopedic Surgeries: Surgical HX of;: Orthopedic Surgery (both knees) - Family History Family History: Reports;: Family Hypertension (parents), Family Stroke (father) - Social History Smoking Status: Never smoker Frequency of Alcohol Use: None Type of Drug Use: None Functional capacity: independent ambulation Exam Physical Examination: General: Well-developed well-nourished, no apparent distress. Head: Normocephalic, atraumatic. Eyes: PERRLA, EOMI. Nose: No obvious acute deformities or discharge. Mouth: No obvious acute injury. Neck: Full range of motion without obvious pain. No midline tender to palpation. Lymphatic: no significant lymphadenopathy noted. Lungs: Clear to auscultation bilaterally, normal and equal air movement bilaterally, no obvious rales or wheezing. Heart: regular rate and rhythm, no obvious mummers. Abdomen: Soft nontender, nondistended, normal active bowel sounds. Skin: No obivous acute lesions noted Musculoskeletal: No gross deformities. Neurological: No focal findings, cranial nerves II through XII grossly normal. Psychiatric: Appropriate mood.. : Deferred Vital Signs: Vital Signs Temperature 97.8 F 04/07/17 15:43 Pulse Rate 76 04/07/17 16:15 Respiratory Rate 19 04/07/17 16:15 Blood Pressure 133/63 04/07/17 16:15 O2 Sat by Pulse Oximetry 99 04/07/17 16:15 Course Course Narrative: Differential diagnosis, dizziness, orthostatic, adverse drug reaction, infection , ACS, pneumonia, pulmonary edema - Reevaluation(s) Reevaluation #1: Etiology of her abdominal pain, shortness of breath, near-syncope and nausea is unclear. We will. I discussed this with the hospitalist service and they accept patient for admission. Time: 17:58 Results - Labs CBC & BMP: 04/07/17 17:06 04/07/17 17:06 Lab Results: I have reviewed the patients labs Labs: Laboratory Tests 04/07/17 17:06 WBC 10.4 RBC 4.19 Hgb 12.2 Hct 36.6 MCV 87.4 MCH 29 MCHC 33.3 RDW 13.1 Plt Count 291 MPV 8.5 L Neut % (Auto) 56.4 Lymph % (Auto) 32.9 [place] % (Auto) 4.8 Eos % (Auto) 5.0 Baso % (Auto) 0.5 Neut # (Auto) 5.9 Lymph # (Auto) 3.4 [place] # (Auto) 0.5 Eos # (Auto) 0.5 Baso # (Auto) 0.1 Immature Gran % 0.4 Nucleated RBC % 0.0 Immature Gran # 0.04 Nucleated RBCs # 0.00 Laboratory Tests 04/07/17 17:06 Sodium 138 Potassium 4.9 Chloride 105 Carbon Dioxide 23 Anion Gap 14.9 BUN 38 H Creatinine 2.50 H GFR Calculation 22 BUN/Creatinine Ratio 15.00 Glucose 91 Calculated Osmolality 283.7 Calcium 9.4 Total Bilirubin < 0.39 AST 18 ALT 24 Alkaline Phosphatase 71 Troponin I < 0.015 Total Protein 7.1 Albumin 3.7 Globulin 3.4 Albumin/Globulin Ratio 1.0 L - EKG EKG results: interpreted by BLAIRE (Heart rate 80, ventricular pacemaker spikes noted. Wide complex QRS complexes without obvious acute ST changes.) - Diagnostic Findings Procedure: Chest x-ray: report reviewed by me, image reviewed by me (No acute cardiopulmonary process. No significant change from prior.) Disposition Clinical Impression: Near syncope, Renal insufficiency, Weakness, Upper abdominal pain Case discussed with: patient, patient's family Disposition: Still a Patient Condition: Stable Time of Disposition: 17:59
[2017-04-07] MEDS ORDERED: ONDANSETRON 4 MG/2 ML VIAL IV PRN (18:30)
[2017-04-07] MEDS ORDERED: MORPHINE 2 MG/1 ML SYRINGE IV PRN (18:30)
[2017-04-07] MEDS ORDERED: SODIUM CHLORIDE 0.9% 1,000 ML IV SCH (18:30)
[2017-04-07] MEDS ORDERED: DOCUSATE SODIUM 100 MG CAPSULE PO PRN (18:30)
[2017-04-07] MEDS ORDERED: PROMETHAZINE 25 MG/1 ML VIAL IM PRN (18:30)
[2017-04-07] MEDS ORDERED: ACETAMINOPHEN 325 MG TABLET PO PRN (18:30)
[2017-04-07] MEDS ORDERED: SODIUM CHLORIDE 0.9% 1,000 ML IV STA (18:30)
--- NOTE | 2017-04-07 18:41 | Hospitalist History & Physical ---
Assessment and Plan - Time spent with patient Time spent with patient: Greater than 30 minutes (1) Near syncope Status: Acute Assessment and plan: admit to monitored bed, routine vitals and PRN medications clear liquid diet SCD's and resume ASA resume home meds as appropriate PRN medications Current Visit: Yes (2) Renal insufficiency Status: Acute Assessment and plan: Hydrate with NS at 150cc/hr after a NS 1L bolus in ER, repeat BMP in AM Current Visit: Yes (3) Upper abdominal pain Status: Acute Assessment and plan: GB US now PRN medications for nausea hydrate well further plan and addendum to follow per Dr. Borrero Current Visit: Yes History of Present Illness Chief complaint: RUQ abdominal pain, nausea and dizziness History of present illness: Ms. Tamayo is a 71 year old female who presents to the ER today with RUQ abdominal pain that started today and has progressively worsened. She states it has been accompanied by severe constant nausea. Denies vomiting or diarrhea. States abdominal pain radiates through to her back. She complains of being very dizzy with standing and feeling lightheaded with exertion, improves with sitting , lying and rest. Vitals stable on bedside monitor. Pt was admitted for a PM placement on 03/11/[address] Villalta. She was re-admitted on 03/26/17 for a staph infection near her PM implant site. At that time she received IV Vancomycin, but had a celeste reaction and was changed to Septra. She was also discharged home on Septra DS. At that admission, her Creatinine at highest was 1.1. Today labs reveal that it is 2.5. Pt states no prior hx of renal insufficiency. CXR, EKG, and other labs are unremarkable. Left chest wound is bandaged, currently being packed and dressing changed being managed by home health. She denies headache, blurry vision, chest pain, shortness of breath, palpitations, diarrhea , cough, dysuria, edema. Pt has a PMH of HTN, Diverticulosis, Cataracts, bulging disc, bladder issues. PSH includes cataracts, multiple bladder tacs, PM placement, hemmerhoid surgery. She does not smoke or drink. Lives with and is very active. She wishes to be a full code. -further information to follow per Dr. Borrero Home Medications Medication Instructions Recorded Confirmed Type Aspirin [Ecotrin] 81 mg PO QPM 01/16/17 04/07/17 History Duloxetine HCl [Cymbalta] 60 mg PO QPM 01/16/17 04/07/17 History LORazepam [Lorazepam] 0.5 mg PO QPM 01/16/17 04/07/17 History Levothyroxine Tab [Synthroid Tab] 88 mcg PO QAM 01/16/17 04/07/17 History Pantoprazole Tab [Protonix Tab] 40 mg PO QAM 01/16/17 04/07/17 History Mupirocin 2% Oint [Bactroban 2% 1 applic TOP TID #6 applic 03/29/17 04/07/17 Rx Oint] Sulfameth/Trimeth 800-160 Tab 1 tablet PO BID #20 tablet 03/29/17 04/07/17 Rx [Bactrim DS Tab] Lisinopril/Hydrochlorothiazide 1 each PO QAM 04/07/17 04/07/17 History [Lisinopril-Hctz 20-12.5 mg Tab] Allergies Allergy/AdvReac Type Severity Reaction Status Date / Time vancomycin Allergy Intermediate ITCHING Verified 04/07/17 15:37 Seafood Allergy Swelling Verified 04/07/17 15:37 of Lip/Tongue/Throat Medical,Surgical,& Family Hx - Medical History Cardio: History of: Hypertension Psychological: No history of: Anxiety Disorders, ADHD, Behavior Problems, Bipolar Disorder, Depression, Previous Suicide Attempt, Psychiatric/Substance Abuse Tx Neurology: No history of: Seizures Endocrine: History of: Thyroid Disorder Gastrointestinal: History of: GERD Musculoskeletal: History of: Back/Neck Problems (back surgery) - Surgical History Cardiac Surgeries: Sugical HX of: Cardiac Catheterization () Thoracic Surgeries: Patient denies;: Organ Transplant Orthopedic Surgeries: Surgical HX of;: Orthopedic Surgery (both knees) - Family History Family History: Reports;: Family Hypertension (parents), Family Stroke (father) - Social History Smoking Status: Never smoker Frequency of Alcohol Use: None Type of Drug Use: None Marital Status: Lives With:: Spouse Functional capacity: independent ambulation 12 point system: reviewed and no additional remarkable complaints except as stated Exam - Constitutional Vitals: Period Temp Pulse Resp BP Sys/Mcfarlane Pulse Ox Last 24 Hr 97.8 F-98.0 F 75-81 16-19 133-161/63-90 97-99 General appearance: normal weight, no acute distress - Head Head exam: Present: normal inspection, normocephalic - Eye Eye exam: Present: EOMI. Absent: nystagmus Pupils: Present: TAMI, normal accommodation - ENT ENT exam: Present: normal exam, normal external ear exam - Neck Neck exam: Present: normal inspection. Absent: lymphadenopathy - Respiratory Respiratory exam: Present: clear to auscultation bilaterally. Absent: rales, rhonchi, wheezes - Cardiovascular Cardiovascular exam: Present: regular rate and rhythm. Absent: tachycardia - GI/Abdominal GI/Abdominal exam: Present: normal bowel sounds, tenderness (RUQ). Absent: distended - Extremities Exam Extremities exam: Present: full ROM. Absent: edema - Back Exam Back exam: Present: normal inspection - Neurological Exam Neurological exam: Present: alert, oriented X3 - Psychiatric Psychiatric exam: Present: normal affect, normal mood - Skin Skin exam: Present: normal color, warm, dry Results - Labs CBC & BMP: 04/07/17 17:06 04/07/17 17:06 Lab Results: I have reviewed the past 24 hour labs - Diagnostic Findings Procedure: Chest x-ray: report reviewed by me (No acute cardiopulmonary process. No significant change from prior.) Quality Measures - VTE Contraindication to Pharmacological VTE Prophylaxis: Already on Theraputic Agent , No Prophylaxis Needed
--- NOTE | 2017-04-07 19:28 | Ultrasound Report ---
US gallbladder Indication: Right upper quadrant abdominal pain, nausea. Comparison: None available. Technique: Multiple longitudinal and transverse real-time sonographic images of the right upper quadrant of the abdomen are obtained. Findings: The liver measures 16.4 cm and demonstrates slightly increased echogenicity without focal abnormality. The gallbladder is normal in size and demonstrates no wall thickening, abnormal intraluminal echoes, or pericholecystic fluid. The sonographic Eugene's sign is however positive. The common duct measures 0.5 cm in diameter and there is no evidence of intrahepatic ductal dilation. Visualized portion the proximal pancreas appears within normal limits. Distal pancreas is obscured. Right kidney measures 9.8 centimeters maximum greater caudal dimension and appears normal. There is no ascites. IMPRESSION: No acute sonographic abnormality in the right upper quadrant. Ultrasound images were captured and stored. PROCEDURE INTERPRETED AT [facility] DEPARTMENT OF RADIOLOGY Final Report Signed by: Wilton Méndez
[2017-04-07] MEDS: SODIUM CHLORIDE 0.9% 1,000 ML IV SCH (20:45)
[2017-04-07] MEDS: DULoxetine 30 MG CAPSULE PO SCH (20:45)
[2017-04-07] MEDS: LORazepam 0.5 MG TABLET PO SCH (20:45)
[2017-04-07] MEDS: ASPIRIN EC 81 MG TABLET PO SCH (20:46)
[2017-04-07] MEDS: MUPIROCIN 2% OINT 22 GM TUBE TOP SCH (20:47)
--- NOTE | 2017-04-07 21:38 | XRay Report ---
XR KUB Clinical Information: Bilateral quadrant abdominal pain Comparison: None Findings: Bowel gas pattern is nonspecific and within normal limits. No abnormally dilated small bowel loops are identified to suggest obstruction. There is no free air identified. Scattered fecal material is noted throughout colon, which is otherwise nondilated. No abnormal focal soft tissue masses or calcific densities are identified in the abdomen or pelvis. Lung bases appear predominantly clear. There is no acute osseous abnormality. No suspicious osseous lesions are identified. Postsurgical posterior pedicle screws are noted at L4-S1. Impression: No acute radiographic abnormality in the abdomen. A mild degree of fecal stasis/constipation is suspected. PROCEDURE INTERPRETED AT [facility] DEPARTMENT OF RADIOLOGY Final Report Signed by: Wilton Méndez
[2017-04-08 05:13] LABS: Basophils # 0.1 10*3/uL (0.0-0.2); Basophils % 0.7 % (0.0-0.8); Eosinophils # 0.6 10*3/uL (0.0-0.87); Eosinophils % 7.9 % (0.00-10.9); Hematocrit 31.6 VOL% (35.7-47.0); Hemoglobin 10.4 GM/DL (12.0-16.0); Immature Granulocytes % 0.3 %; Immature Granulocytes Absolute 0.02 #; Lymphocytes # 3.4 10*3/uL (1.4-4.0); Lymphocytes % 48.4 % (21.3-54.2); Mean Corpuscular HGB Conc 32.9 GM/DL (32-36); Mean Corpuscular Hemoglobin 29 PG (27-34); Mean Platelet Volume 8.6 FL (9.6-12.0); Monocytes # 0.4 10*3/uL (0.11-0.8); Monocytes % 5.8 % (1.7-12.7); Neutrophils # 2.6 10*3/uL (1.4-7.4); Neutrophils % 36.9 % (38.7-73.9); Platelet Count 237 T/CUMM (130-400); Red Blood Count 3.55 MC/CUMM (3.8-5.5); Red Cell Distribution Width 13.2 % (9.3-17.3); White Blood Count 7.1 T/CUMM (4-12)
[2017-04-08 05:45] LABS: Eosinophils 12 % (0-10); Hypochromasia Slight; Lymphocytes 48 % (20-55); Segmented Neutrophils 36 % (50-85); Total Cells Counted 100
[2017-04-08 05:46] LABS: Microcytosis Slight; Platelet Estimate Normal
[2017-04-08 05:53] LABS: Calcium 8.1 MG/DL (8.5-10.1); Osmolality,Calculated 288.3 MOS/KG (273-304); Potassium 4.8 MMOL/L (3.5-5.1)
[2017-04-08] MEDS: SODIUM CHLORIDE 0.9% 1,000 ML IV SCH ×3 (06:20→22:45)
[2017-04-08] MEDS: LEVOTHYROXINE 88 MCG TABLET PO SCH (08:44)
[2017-04-08] MEDS: MUPIROCIN 2% OINT 22 GM TUBE TOP SCH ×3 (08:44→20:30)
[2017-04-08] MEDS: PANTOPRAZOLE 40 MG TABLET PO SCH (08:44)
[2017-04-08] MEDS ORDERED: LISINOPRIL/HCTZ 20-12.5 MG TABLET PO SCH (09:00)
--- NOTE | 2017-04-08 10:49 | Infectious Disease Consult ---
Assessment and Plan (1) Renal insufficiency Status: Acute Assessment and plan: Acute renal insufficiency possibly associated with the Bactrim plus or minus decreased oral intake related to nausea from this antibiotic. Should improve with rehydration and discontinuation of the Bactrim. Current Visit: Yes (2) Weakness Status: Acute Assessment and plan: Probably associated with Bactrim use. Current Visit: Yes (3) Skin infection Status: Acute Assessment and plan: Infection to the ILR explant site has clinically resolved. Patient should continue with local wound care until the wound completely heals. The Bactrim will be discontinued and no further antibiotic therapy is indicated at this time. Thank you very much for the consult. Call again as needed. Discussed with Dr. Sutherland. Current Visit: No History of Present Illness Chief complaint: Assist with antibiotics History of present illness: Ms. Tamayo is a 71 year old female who was here recently with infected ILR explant site. The infection was with MRSA. I have recommended that she be discharged home on oral Bactrim. She was taking this as prescribed, I saw her in the office last week . The wound to her left upper chest was a bit sloughy because she had not changed dressings 4 weeks and she was discharged. She was coming to the end of the Bactrim therapy and actually says she finished this yesterday. She said the Bactrim caused GI upset with nausea but no vomiting. She was expensing abdominal pain. Yesterday she felt a bit lightheaded and upset and so came to the hospital. She never actually had a syncopal episode. Noted to have acute renal failure. I am asked to advise on antibiotic therapy. Patient has not had fever since discharge. Home Medications Medication Instructions Recorded Confirmed Type Aspirin [Ecotrin] 81 mg PO QPM 01/16/17 04/07/17 History Duloxetine HCl [Cymbalta] 60 mg PO QPM 01/16/17 04/07/17 History LORazepam [Lorazepam] 0.5 mg PO QPM 01/16/17 04/07/17 History Levothyroxine Tab [Synthroid Tab] 88 mcg PO QAM 01/16/17 04/07/17 History Pantoprazole Tab [Protonix Tab] 40 mg PO QAM 01/16/17 04/07/17 History Mupirocin 2% Oint [Bactroban 2% 1 applic TOP TID #6 applic 05/26/17 06/04/17 Rx Oint] Sulfameth/Trimeth 800-160 Tab 1 tablet PO BID #20 tablet 03/29/17 04/07/17 Rx [Bactrim DS Tab] Lisinopril/Hydrochlorothiazide 1 each PO QAM 04/07/17 04/07/17 History [Lisinopril-Hctz 20-12.5 mg Tab] Allergies Allergy/AdvReac Type Severity Reaction Status Date / Time vancomycin Allergy Intermediate ITCHING Verified 04/07/17 15:37 Seafood Allergy Swelling Verified 04/07/17 15:37 of Lip/Tongue/Throat 12 point system: reviewed and no additional remarkable complaints except as stated (Per HPI) Medical,Surgical,& Family Hx - Medical History Cardio: History of: Cardiac Dysrhythmia, Hypertension, Pacemaker Psychological: No history of: Anxiety Disorders, ADHD, Behavior Problems, Bipolar Disorder, Depression, Previous Suicide Attempt, Psychiatric/Substance Abuse Tx Neurology: No history of: Seizures Endocrine: History of: Thyroid Disorder Renal: History of: Renal Problems Gastrointestinal: History of: GERD Musculoskeletal: History of: Back/Neck Problems (back surgery) Other: History of: Anaphylaxis (seafood) - Surgical History Cardiac Surgeries: Sugical HX of: Cardiac Catheterization (), Cardiac Surgery Thoracic Surgeries: Patient denies;: Organ Transplant Neurologic Surgeries: Patient denies: Neurologic Surgery Abdominal Surgeries: Surgical HX of: Colonoscopy (approximately "3 years ago, might be longer") Reproductive Surgeries: Surgical HX of;: Hysterectomy Orthopedic Surgeries: Surgical HX of;: Orthopedic Surgery (both knees), Spinal Surgery (Isidoro in back) - Family History Family History: Reports;: Family Diabetes (Father), Family Heart Disease ( Father and mother), Family Hypertension (parents), Family Stroke (father) Denies;: Family Hematology, Family Psychiatric Problems - Social History Smoking Status: Never smoker Frequency of Alcohol Use: None Type of Drug Use: None Infectious Disease Exam H&P - Constitutional Vitals: Vital Signs Temp Pulse Resp BP Pulse Ox 96.3 F L 65 18 123/61 98 04/08/17 08:00 04/08/17 08:15 04/08/17 08:00 04/08/17 08:00 04/08/17 08:00 Intake and Output 04/07/17 04/08/17 04/08/17 23:59 07:59 15:59 Intake Total 1120 / 1120 1000 / 1000 Balance 1120 / 1120 1000 / 1000 Intake: IV 1000 / 1000 1000 / 1000 Ns 1,000 ml @ 125 mls/hr 1000 / 1000 1000 / 1000 IV .Q8H KENNETH Rx#: [id number] Oral 120 / 120 Other: Voiding Method Toilet # Voids 1 2 Weight 92.986 kg Exam: General: Patient relatively comfortable, nontoxic appearing HEENT: Mucous membranes pink and moist, anicteric acyanotic, TAMI, no oropharyngeal exudates Neck: Supple, no thyroid gland enlargement Respiratory system: Breath sounds vesicular, no crepitations or wheezes Cardiovascular: Wound to left upper anterior chest wall noted shrunken in size since I saw her 4 days ago, healthy pink granulation tissue base, no drainage, no surrounding induration or erythema. Normal S1 and S2, no murmurs appreciated Abdomen: Normal bowel sounds, soft nontender throughout, no organomegaly or mass Genitourinary: No suprapubic pain or bladder distention Extremities: no edema Skin: No rash Reports - Labs CBC & BMP: 04/08/17 04:05 04/08/17 04:05 Labs: Laboratory Results - last 24 hr 04/07/17 04/07/17 04/07/17 17:06 17:06 17:06 WBC 10.4 RBC 4.19 Hgb 12.2 Hct 36.6 MCV 87.4 MCH 29 MCHC 33.3 RDW 13.1 Plt Count 291 MPV 8.5 L Neut % (Auto) 56.4 Lymph % (Auto) 32.9 Dane % (Auto) 4.8 Eos % (Auto) 5.0 Baso % (Auto) 0.5 Neut # (Auto) 5.9 Lymph # (Auto) 3.4 Dane # (Auto) 0.5 Eos # (Auto) 0.5 Baso # (Auto) 0.1 Total Counted Immature Gran % 0.4 Nucleated RBC % 0.0 Immature Gran # 0.04 Segmented Neutrophils Lymphocytes Monocytes Eosinophils Nucleated RBCs # 0.00 Platelet Estimate Hypochromasia Microcytosis INR 1.0 PT Patient/Control Mix 10.0 Sodium 138 Potassium 4.9 Chloride 105 Carbon Dioxide 23 Anion Gap 14.9 BUN 38 H Creatinine 2.50 H GFR Calculation 22 BUN/Creatinine Ratio 15.00 Glucose 91 Calculated Osmolality 283.7 Calcium 9.4 Total Bilirubin < 0.39 AST 18 ALT 24 Alkaline Phosphatase 71 Troponin I < 0.015 Total Protein 7.1 Albumin 3.7 Globulin 3.4 Albumin/Globulin Ratio 1.0 L 04/08/17 04/08/17 04:05 04:05 WBC 7.1 D RBC 3.55 L Hgb 10.4 L Hct 31.6 L MCV 89.0 MCH 29 MCHC 32.9 RDW 13.2 Plt Count 237 MPV 8.6 L Neut % (Auto) 36.9 L Lymph % (Auto) 48.4 Dane % (Auto) 5.8 Eos % (Auto) 7.9 Baso % (Auto) 0.7 Neut # (Auto) 2.6 Lymph # (Auto) 3.4 Dane # (Auto) 0.4 Eos # (Auto) 0.6 Baso # (Auto) 0.1 Total Counted 100 Immature Gran % 0.3 Nucleated RBC % 0.0 Immature Gran # 0.02 Segmented Neutrophils 36 L Lymphocytes 48 Monocytes 4 Eosinophils 12 H Nucleated RBCs # 0.00 Platelet Estimate Normal Hypochromasia Slight Microcytosis Slight INR PT Patient/Control Mix Sodium 141 Potassium 4.8 Chloride 109 H Carbon Dioxide 22 Anion Gap 14.8 BUN 37 H Creatinine 2.20 H GFR Calculation 26 BUN/Creatinine Ratio 16.00 Glucose 89 Calculated Osmolality 288.3 Calcium 8.1 L Total Bilirubin AST ALT Alkaline Phosphatase Troponin I Total Protein Albumin Globulin Albumin/Globulin Ratio
--- NOTE | 2017-04-08 12:25 | EKG Report ---
Stationary ECG Study [facility] Test Date: 04/08/2017 12:25:14 PM Pat Name: AMISH BOSWELL Department: Room: 536 Gender: F Profiling Machine Set Up Operator: GLEN : 1945 Requested by: Terra Fletcher Order Number: [id number] Reading MD: JOB URIBE Intervals [place] Rate: 66 P: 70 VA: 262 QRS: 137 QRSD: 165 T: 26 QT: 473 QTc: 487 Interpretive Statements ELECTRONIC VENTRICULAR PACEMAKER Tracking normal sinus rhythm with first-degree A-V B at 66 bpm ABNORMAL RHYTHM ECG Electronically Signed On 04-09-17 13:03:59 CDT by JOB URIBE [email or web address]
--- NOTE | 2017-04-08 16:16 | Cardiology Consult Note ---
Clay Pelaez Vanessa, RN, am scribing for, and in the presence of, Valente Davey MD 16:15. Assessment and Plan - Time spent with patient Time spent with patient: Greater than 30 minutes (Due to assessment, planning, documentation, and medication review) (1) Renal insufficiency Status: Acute Assessment and plan: Creatinine elevated to 2.5 at admission, and recent use of Bactrim felt to be contributing to renal insufficiency. Bactrim has been discontinued. Creatinine with slight improvement to 2.2 today. Current Visit: Yes (2) Near syncope Status: Acute Assessment and plan: Associated dizziness and some lightheadedness while experiencing some abdominal pain yesterday after waking up and continued through the morning. This has resolved, and she has not experienced syncope. Current Visit: Yes (3) Weakness Status: Acute Assessment and plan: May be related to use of Bactrim. Patient finished her Bactrim course yesterday , and reports associated GI upset during this therapy. Current Visit: Yes (4) HTN (hypertension) Status: Chronic Assessment and plan: Well controlled at this time. Continue current medication regimen. 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 Exertional bradycardia and AV block resolved after pacemaker implant. Recent interrogation revealed appropriate function, and EKG with intermittent AV pacing. Current Visit: No History of Present Illness - Data of Consult Patient: known to practice within the last 3 years Consult date: 04/08/17 Requesting Physician: Terra Sutherland - Consult Narrative Reason for consult: Near syncope History of present illness: PRIMARY CHILD AND FAMILY COUNSELOR: DR. VILLALTA PCP: DR. LEVIN CARDIOLOGY CONSULT NOTE: NEAR SYNCOPE, RECENT STAPH INFECTION ILR EXPLANT SITE, S/P PACEMAKER IMPLANT Ms. Tamayo is a 71 year old white female with risk factors significant for: Age, diabetes, hypertension, dyslipidemia, obesity. Past medical history includes hypothyroid, anxiety, diverticulitis. Patient is status post dual- chamber pacemaker implant on March 11 for second-degree AV block which was noted to be exercise-induced. At time of pacemaker implant, internal loop recorder was explanted. Patient was readmitted to the hospital on March 26 for staph infection at the loop recorder explant site. Pacemaker site was healing well and device functioning appropriately. Patient was discharged home on March 29 with prescription for Bactrim 10 days, and she was instructed to follow-up with Dr. Santiago and Dr. Villalta. She presented to [facility] ED on the evening of April 07 with complaints of dizziness, severe nausea and abdominal pain, shortness of breath, and near-syncope with onset earlier in the day. Creatinine was elevated at 2.5, and Bactrim was held. KUB x-ray suspicious for mild constipation. Abdominal ultrasound benign. Chest x-ray negative for acute cardiopulmonary process, pacemaker leads in appropriate position. Patient admitted to [facility] floor per hospital medicine for treatment of acute renal failure and further workup and treatment or shortness of breath, abdominal pain , near syncope. Cardiology has been consulted for further evaluation and recommendation. Since admission to hospital, there have been no clinical findings for ACS. EKG reveals sinus rhythm with ventricular pacing. No overt ectopy or ischemic finding. Upon speaking interviewing patient, she denies syncopal episode. Reports that after she woke up yesterday morning and was preparing lunch for the afternoon, she noticed abdominal pain and GI upset that progressively worsened as she increased her activity. She did experience some dizziness and lightheadedness with abdominal pain, and this prompted her presentation for further evaluation. Denies chest pain, shortness of breath, palpitations, or other anginal complaint. No current abdominal pain, and she reports that she has been pain-free since receiving Ava and Phenergan overnight. Labs reviewed and overall unremarkable with exception of renal insufficiency mentioned above. Blood pressure 125/60. Her symptoms sound suspicious for orthostasis. I am going to stop her diuretic and see how she does off of it. She has been nauseated with very little in the way of significant p.o. intake I suspect she is a little over diuresed. CC: Terra Sutherland MD - Home Medications and Allergies Home Medications: Home Medications Medication Instructions Recorded Confirmed Type Aspirin [Ecotrin] 81 mg PO QPM 01/16/17 04/07/17 History Duloxetine HCl [Cymbalta] 60 mg PO QPM 01/16/17 04/07/17 History LORazepam [Lorazepam] 0.5 mg PO QPM 01/16/17 04/07/17 History Levothyroxine Tab [Synthroid Tab] 88 mcg PO QAM 01/16/17 04/07/17 History Pantoprazole Tab [Protonix Tab] 40 mg PO QAM 01/16/17 04/07/17 History Mupirocin 2% Oint [Bactroban 2% 1 applic TOP TID #6 applic 03/29/17 04/07/17 Rx Oint] Sulfameth/Trimeth 800-160 Tab 1 tablet PO BID #20 tablet 03/29/17 04/07/17 Rx [Bactrim DS Tab] Lisinopril/Hydrochlorothiazide 1 each PO QAM 04/07/17 04/07/17 History [Lisinopril-Hctz 20-12.5 mg Tab] Allergies/Adverse Reactions: Allergies Allergy/AdvReac Type Severity Reaction Status Date / Time vancomycin Allergy Intermediate ITCHING Verified 04/07/17 15:37 Seafood Allergy Swelling Verified 04/07/17 15:37 of Lip/Tongue/Throat - Constitutional Constitutional: Present: as per HPI - EENT Eyes: Present: as per HPI Ears: Present: as per HPI Nose, mouth and throat: Present: as per HPI - Cardiovascular Cardiovascular: Present: as per HPI - Respiratory Respiratory: Present: as per HPI - Gastrointestinal Gastrointestinal: Present: as per HPI - Genitourinary Genitourinary: Present: as per HPI - Musculoskeletal Musculoskeletal: Present: as per HPI - Neurological Neurological: Present: as per HPI - Psychiatric Psychiatric: Present: as per HPI - Endocrine Endocrine: Present: as per HPI - Hematologic/Lymphatic Hematologic/Lymphatic: Present: as per HPI Medical,Surgical,& Family Hx - Medical History Cardio: History of: Cardiac Dysrhythmia, Hypertension, Pacemaker Psychological: No history of: Anxiety Disorders, ADHD, Behavior Problems, Bipolar Disorder, Depression, Previous Suicide Attempt, Psychiatric/Substance Abuse Tx Neurology: No history of: Seizures Endocrine: History of: Thyroid Disorder Renal: History of: Renal Problems Gastrointestinal: History of: GERD Musculoskeletal: History of: Back/Neck Problems (back surgery) Other: History of: Anaphylaxis (seafood) - Surgical History Cardiac Surgeries: Sugical HX of: Cardiac Catheterization (), Cardiac Surgery Thoracic Surgeries: Patient denies;: Organ Transplant Neurologic Surgeries: Patient denies: Neurologic Surgery Abdominal Surgeries: Surgical HX of: Colonoscopy (approximately "3 years ago, might be longer") Reproductive Surgeries: Surgical HX of;: Hysterectomy Orthopedic Surgeries: Surgical HX of;: Orthopedic Surgery (both knees), Spinal Surgery (Isid[place] in back) - Family History Family History: Reports;: Family Diabetes (Father), Family Heart Disease ( Father and mother), Family Hypertension (parents), Family Stroke (father) Denies;: Family Hematology, Family Psychiatric Problems - Social History Smoking Status: Never smoker Frequency of Alcohol Use: None Type of Drug Use: None Physical Examination Vital Signs Temp Pulse Resp BP Pulse Ox 98.0 F 81 16 135/70 98 04/07/17 15:34 04/07/17 15:34 04/07/17 15:34 04/07/17 15:34 04/07/17 15:34 General: Present: Appears Well, No Apparent Distress, Other (Obese) HEENT: Present: PERRL, Normocephaly, Mucus Membranes Moist Neck: Present: Supple Neck, Midline Trachea, No JVD/HJR, No Bruit Cardiac: Present: Reg Rate and Rhythm, No Murmur Lungs: Present: Clear Ascult./Percussion, No Wheeze, Rales, Rhonchi. Absent: Oxygen Neuro: Present: Grossly Intact. Absent: Numbness, Tingling, Weakness, Resting Tremor Abdomen: Present: Soft, Active Bowel Sounds. Absent: Ascites, Tender, Firm Skin: Present: Clear, Other. Absent: Rash, Suspicious Lesions, Bruising Incision: Present: Incision Site (ILR explant site with dry/intact packing. No redness, drainage, odor.) Musculoskeletal: Present: No Fluid Collection, Normal Range of Motion Extremities: Present: No Clubbing, No Cyanosis, No Edema, Normal Upper Extr. Pulses (3+ bilaterally), Normal Lower Extr. Pulses (3+ bilaterally), Capillary Refill (Normal) Result/EKG - Labs CBC & BMP: 04/08/17 04:05 04/08/17 04:05 Lab Results: I have reviewed the past 24 hour labs Labs: Laboratory Results - last 24 hr 04/07/17 04/07/17 04/07/17 17:06 17:06 17:06 WBC 10.4 RBC 4.19 Hgb 12.2 Hct 36.6 MCV 87.4 MCH 29 MCHC 33.3 RDW 13.1 Plt Count 291 MPV 8.5 L Neut % (Auto) 56.4 Lymph % (Auto) 32.9 [place] % (Auto) 4.8 Eos % (Auto) 5.0 Baso % (Auto) 0.5 Neut # (Auto) 5.9 Lymph # (Auto) 3.4 [place] # (Auto) 0.5 Eos # (Auto) 0.5 Baso # (Auto) 0.1 Total Counted Immature Gran % 0.4 Nucleated RBC % 0.0 Immature Gran # 0.04 Segmented Neutrophils Lymphocytes Monocytes Eosinophils Nucleated RBCs # 0.00 Platelet Estimate Hypochromasia Microcytosis INR 1.0 PT Patient/Control Mix 10.0 Sodium 138 Potassium 4.9 Chloride 105 Carbon Dioxide 23 Anion Gap 14.9 BUN 38 H Creatinine 2.50 H GFR Calculation 22 BUN/Creatinine Ratio 15.00 Glucose 91 Calculated Osmolality 283.7 Calcium 9.4 Total Bilirubin < 0.39 AST 18 ALT 24 Alkaline Phosphatase 71 Troponin I < 0.015 Total Protein 7.1 Albumin 3.7 Globulin 3.4 Albumin/Globulin Ratio 1.0 L 04/08/17 04/08/17 04:05 04:05 WBC 7.1 D RBC 3.55 L Hgb 10.4 L Hct 31.6 L MCV 89.0 MCH 29 MCHC 32.9 RDW 13.2 Plt Count 237 MPV 8.6 L Neut % (Auto) 36.9 L Lymph % (Auto) 48.4 [place] % (Auto) 5.8 Eos % (Auto) 7.9 Baso % (Auto) 0.7 Neut # (Auto) 2.6 Lymph # (Auto) 3.4 [place] # (Auto) 0.4 Eos # (Auto) 0.6 Baso # (Auto) 0.1 Total Counted 100 Immature Gran % 0.3 Nucleated RBC % 0.0 Immature Gran # 0.02 Segmented Neutrophils 36 L Lymphocytes 48 Monocytes 4 Eosinophils 12 H Nucleated RBCs # 0.00 Platelet Estimate Normal Hypochromasia Slight Microcytosis Slight INR PT Patient/Control Mix Sodium 141 Potassium 4.8 Chloride 109 H Carbon Dioxide 22 Anion Gap 14.8 BUN 37 H Creatinine 2.20 H GFR Calculation 26 BUN/Creatinine Ratio 16.00 Glucose 89 Calculated Osmolality 288.3 Calcium 8.1 L Total Bilirubin AST ALT Alkaline Phosphatase Troponin I Total Protein Albumin Globulin Albumin/Globulin Ratio - Diagnostic Findings Procedure: Chest x-ray: image reviewed by me, report reviewed by me - EKG EKG results: interpreted by me, no acute changes (Ventricular pacing) Quality Measures - VTE Contraindication to Pharmacological VTE Prophylaxis: Already on Theraputic Agent , No Prophylaxis Needed IPetar Wesley, MD, personally performed the services described in this documentation, ascribed by Sierra Williamson RN in my presence, and it is both accurate and complete 615 .
--- NOTE | 2017-04-08 16:44 | Hospitalist Progress Note ---
Assessment and Plan (1) Acute on chronic renal failure Status: Acute Assessment and plan: orthostatics negative but want to continue NS at 75 ml/hr, hold bactrim and lisinopril for now, Potassium high due to worsening renal function and bactrim and lisinopril Current Visit: Yes (2) S/P cardiac pacemaker procedure Status: Chronic Current Visit: No (3) Near syncope Status: Acute Assessment and plan: orthostatics not positive but would cont to hold diuretics for now and cont ns Current Visit: Yes (4) Anemia Status: Acute Assessment and plan: recheck hemoglobin in am Current Visit: Yes Hospitalist: Subjective Interval history: Discussed patient with Dr. Davey and with Dr. Santiago. Dr. Santiago recommend stopping all antibiotics. Spoke with Dr. Davey he recommends orthostatics and hold diuretics. Exam - Constitutional Vitals: Period Temp Pulse Resp BP Sys/[place]cf[place]ane Pulse Ox Last 24 Hr 96.3 F-98.5 F 61-72 18-20 107-150/47-77 96-98 Exam: Heart Rate-[RRR] Lungs-[CTAB] GI-[+bs soft, NT] Ext-[no edema] Neuro [Motor 5/5], [alert and oriented times 3] psych [normal mood and affect] General [no acute distress] Results - Labs CBC & BMP: 04/08/17 04:05 04/08/17 04:05 Lab Results: I have reviewed the past 24 hour labs - Diagnostic Findings Procedure: Chest x-ray: report reviewed by me (nothing acute ) Quality Measures - VTE Contraindication to Pharmacological VTE Prophylaxis: Already on Theraputic Agent , No Prophylaxis Needed
[2017-04-08] MEDS: LORazepam 0.5 MG TABLET PO SCH (20:28)
[2017-04-08] MEDS: ASPIRIN EC 81 MG TABLET PO SCH (20:28)
[2017-04-08] MEDS: DULoxetine 30 MG CAPSULE PO SCH (20:29)
[2017-04-09] MEDS ORDERED: METOPROLOL TARTRATE 25 MG TABLET PO SCH (06:30)
[2017-04-09 08:16] LABS: Calcium 8.5 MG/DL (8.5-10.1); Potassium 5.1 MMOL/L (3.5-5.1)
[2017-04-09] MEDS: SODIUM CHLORIDE 0.9% 1,000 ML IV SCH (08:40)
[2017-04-09] MEDS: MUPIROCIN 2% OINT 22 GM TUBE TOP SCH (08:41)
[2017-04-09] MEDS: LEVOTHYROXINE 88 MCG TABLET PO SCH (08:41)
[2017-04-09] MEDS: PANTOPRAZOLE 40 MG TABLET PO SCH (08:41)
[2017-04-09] MEDS ORDERED: LISINOPRIL 20 MG TABLET PO SCH (09:00)
[2017-04-09 09:23] VITALS: BP 144/81
--- NOTE | 2017-04-09 10:22 | Discharge Summary ---
Hospital Course - Hospital Course Hospital Course: 71-year-old female who has a recently implanted pacemaker. She had a loop recorder placed to find out the etiology of her syncope episodes. His loop recorder became infected and had to be removed. She has been on Bactrim for several days. Presented to the emergency room after near syncope. Vitals were taken and she was not noted to be orthostatic but she was dehydrated. We have stopped her lisinopril/hydrochlorothiazide. I would avoid TAMY or arb to her renal failure and elevated potassium. She also complained of some abdominal pain on admission which is now resolved. Ultrasound showed that the gallbladder is normal in size and that the common bile duct was not dilated. Her KUB was also normal no evidence of obstruction. Patient feels better today and would like to go home. Dr. Davey was consulted and saw her yesterday and felt that she just needed hydration. No further workup planned at this point patient will be discharged home today. Heart rate was elevated last night and she is better on a low dose beta prabhu. - Time spent with patient Time with patient DS: Less than 30 minutes (25 min) Diagnosis - Discharge Diagnosis (1) Acute on chronic renal failure Status: Acute (2) S/P cardiac pacemaker procedure Status: Chronic (3) Near syncope Status: Acute (4) Anemia Status: Acute Discharge Plan - Discharge Data Disposition: Disch To Home/Self Care Condition at Discharge: Stable Discharge Diet: high fiber diet Activity: resume usual activities as tolerated Hygiene: no restrictions Weight Bearing at Discharge: full weight bearing - Discharge Medications New Metoprolol Tartrate Tab [Lopressor Tab] 25 mg PO BID #60 tablet Continue LORazepam [Lorazepam] 0.5 mg PO QPM Levothyroxine Tab [Synthroid Tab] 88 mcg PO QAM Duloxetine HCl [Cymbalta] 60 mg PO QPM Aspirin [Ecotrin] 81 mg PO QPM Pantoprazole Tab [Protonix Tab] 40 mg PO QAM Mupirocin 2% Oint [Bactroban 2% Oint] 1 applic TOP TID #6 applic Discontinued Sulfameth/Trimeth 800-160 Tab [Bactrim DS Tab] 1 tablet PO BID #20 tablet Lisinopril/Hydrochlorothiazide [Lisinopril-Hctz 20-12.5 mg Tab] 1 each PO QAM - Follow Up or Referral Follow Up: Malcolm Villalta MD [Physician] - (as scheduled ) - Forms/Instructions Instructions: Syncope (DC), Anemia (DC) Exam - Constitutional Vitals: Period Temp Pulse Resp BP Sys/Mcfarlane Pulse Ox Last 24 Hr 97.6 F-98.3 F 65-89 16-18 117-160/58-81 95-97 General appearance: normal weight, no acute distress - Respiratory Respiratory exam: Present: clear to auscultation bilaterally. Absent: rhonchi, wheezes - Cardiovascular Cardiovascular exam: Present: regular rate and rhythm. Absent: systolic murmur - GI/Abdominal GI/Abdominal exam: Present: normal bowel sounds, soft. Absent: tenderness - Extremities Exam Extremities exam: Present: normal inspection, normal capillary refill Discharge Results Procedures and tests throughout hospitalization: Pending Orders 04/10/17 04:00 BMP [Basic Metabolic Panel] IN AM 04/11/17 04:00 BMP [Basic Metabolic Panel] IN AM Labs on day of discharge: Labs from last 24 hours 04/09/17 04/09/17 05:45 05:45 Hgb 10.6 L Sodium 143 Potassium 5.1 Chloride 111 H Carbon Dioxide 25 Anion Gap 12.1 BUN 24 H Creatinine 1.40 H GFR Calculation 44 BUN/Creatinine Ratio 17.00 Glucose 100 Calculated Osmolality 288.0 Calcium 8.5 DS: Provider Date of admission: 04/08/17 14:36 Primary care physician: Beltran Ulloa I Attending physician on admission: Oliverio Borrero MD Consults: 04/07/17 18:32 Consult to Wound Care [facility] [CONS] Routine Reason for Wound Care: Wound Care Management Consult Comment: wound packing of left chest 04/08/17 08:58 Consult to Physician [CONS] Routine Comment: abx for infection Consulting Provider: Nehal Maki When should Consulting Provider be notified: Now Person Notified: MARCUS Date Notified: 04/08/17 Time Notified: 09:02 04/08/17 08:59 Consult to Physician [CONS] Routine Comment: syncope Consulting Provider: Valente Davey When should Consulting Provider be notified: Now Person Notified: DESHAWN Date Notified: 04/08/17 Time Notified: 09:04 04/08/17 16:44 Consult to Physical Therapy [CONS] Routine Reason for Physical Therapy: Evaluate and Treat Discharging clinician: Terra Sutherland MD
== END 2017-04-09 12:05 | disposition home or self-care (01) | DRG 683 ==
LOC: N.EDINP 15:20 → N.ED 15:20 → SUATTDRO 18:30 → N.5E 19:20
PROVIDERS: ADMIT Internal Medicine; ATTEND Internal Medicine